=== PATIENT | female | born 1985 | race Caucasian/White ===

== ENCOUNTER 2017-02-28 15:54 | Emergency (ER) | payer OTHER ==
[~2017-02-28] VITALS: Ht 175.3 cm; Wt 66.7 kg
[2017-02-28 15:58] VITALS: BP 123/69
--- NOTE | 2017-02-28 16:20 | NUR ---
Patient ambulated to bed 6. RN evaluating patient at bedside.
--- NOTE | 2017-02-28 16:21 | NUR ---
31 F BIB SELF WITH C/O 02/03 "SHARP" NON RADIATING INTERMITTENT EPIGASTRIC PAIN X 1 WEEK; LMP 01/12/17; PT STATES SHE WAS EATING SUSHI AND MIGHT HAVE FOOD POISONING. PT DENIES ANY RECENT FEVERS, CHILLS, SOB, OR BLOOD IN STOOL; PT REPORTS OF INTERMITTENT N/V X 1 WEEK; PT DENIES ANY VAG BLEEDING; SKIN IS PINK/WARM/DRY; AOX4 WITH EVEN AND STEADY GAIT; RR ARE EVEN AND UNLABORED; VSS; PATIENT POSITIONED FOR COMFORT; HOB ELEVATED; ER MD MADE AWARE OF PT STATUS. NAD. WILL CONTINUE TO MONITOR.
--- NOTE | 2017-02-28 16:49 | NUR ---
Dr. Rodney evaluating patient at bedside.
[2017-02-28] MEDS ORDERED: DEXT 5% / LACT RING 1,000 ML IV ONE (17:00)
--- NOTE | 2017-02-28 17:20 | NUR ---
US tech at bedside for exam.
[2017-02-28 17:29] LABS: BASOPHILS # (AUTO) 0.1 K/uL (0.00-0.22); BASOPHILS % (AUTO) 2.1 % (0.0-2.0); EOSINOPHILS # (AUTO) 0.1 K/uL (0-0.4); EOSINOPHILS % (AUTO) 0.8 % (0.0-4.0); HEMATOCRIT 41.3 % (36-48); HEMOGLOBIN 13.9 g/dL (12.0-16.0); LYMPHOCYTES # (AUTO) 1.5 K/uL (2.5-16.5); LYMPHOCYTES % (AUTO) 23.6 % (20.5-51.1); MEAN CORPUSCULAR HEMOGLOBIN 29 pg (27-31); MEAN CORPUSCULAR HGB CONC 34 g/dL (33-37); MEAN CORPUSCULAR VOLUME 87 fL (80-94); MONOCYTES # (AUTO) 0.5 K/uL (0.8-1.0); MONOCYTES % (AUTO) 8.1 % (1.7-9.3); NEUTROPHILS # (AUTO) 4.1 K/uL (1.8-7.7); NEUTROPHILS % (AUTO) 65.4 % (42.2-75.2); PLATELET COUNT (AUTO) 256 K/uL (140-450); RED BLOOD CELL COUNT(AUTO) 4.77 MIL/uL (4.20-5.40); RED CELL DISTRIBUTION WIDTH 11.9 % (11.6-13.7); WHITE BLOOD COUNT (AUTO) 6.3 K/uL (4.8-10.8)
[2017-02-28 17:38] LABS: ANION GAP 13.6 (8-16); CARBON DIOXIDE 26.2 mmol/L (21-32); CREATININE 0.6 mg/dL (0.6-1.3); POTASSIUM 3.8 mmol/L (3.5-5.1)
--- NOTE | 2017-02-28 17:54 | NUR ---
Dr. Rodney re-evaluating patient at bedside.
[2017-02-28] MEDS ORDERED: ONDANSETRON 4 MG/2 ML VIAL IVP ONE (17:55)
--- NOTE | 2017-02-28 19:15 | NUR ---
IV removed, catheter intact and site benign. Applied folded 4x4 gauze and tape to stop bleeding. Pt tolerated procedure well.
[2017-02-28 19:17] VITALS: BP 103/90
== END 2017-02-28 19:17 | disposition home or self-care (01) ==
LOC: MED 15:54
DX: O26.891 Other specified pregnancy related conditions, first trimester (principal); R10.2 Pelvic and perineal pain
CPT/HCPCS: 36415; 76801; 80048; 81002; 81025; 84702; 85025; 86900; 86901; 96361; 96374; 99285; J2405; Q0092

== ENCOUNTER 2018-07-12 11:35 | Emergency (ER) | payer OTHER ==
[~2018-07-12] VITALS: Ht 175.3 cm; Wt 63.5 kg
[2018-07-12 11:42] VITALS: BP 107/63
--- NOTE | 2018-07-12 11:57 | NUR ---
PT AMBULATED TO ER BED 03
--- NOTE | 2018-07-12 12:00 | NUR ---
PATIENT PRESENTS TO ED WITH C/O ABDOMINAL CRAMPING PAIN RADIATING TO LOWER BACK 10/04, VAGINAL UNCONTROLED BLEEDING FOR 2 WEEKS. PT IS AAOX4 WITH EVEN AND STEADY GAIT; LUNGS CLEAR BL; HR EVEN AND REGULAR; PT DENIES ANY FEVER, CP, SOB, OR COUGH AT THIS TIME; DENIES N/V/D; SKIN IS PINK/WARM/DRY; VSS; PATIENT POSITIONED FOR COMFORT; HOB ELEVATED; BEDRAILS UP X2; BED DOWN. ER MD MADE AWARE OF PT STATUS.
--- NOTE | 2018-07-12 12:19 | NUR ---
Patient being evaluated by physician at bedside.
--- NOTE | 2018-07-12 12:47 | NUR ---
US AT BEDSIDE
[2018-07-12 12:59] LABS: BASOPHILS % (AUTO) 0.7 % (0.0-2.0); EOSINOPHILS # (AUTO) 0.1 K/uL (0-0.4); EOSINOPHILS % (AUTO) 2.3 % (0.0-4.0); HEMATOCRIT 39.8 % (36-48); HEMOGLOBIN 13.2 g/dL (12.0-16.0); LYMPHOCYTES # (AUTO) 1.2 K/uL (2.5-16.5); LYMPHOCYTES % (AUTO) 37.4 % (20.5-51.1); MEAN CORPUSCULAR HEMOGLOBIN 29 pg (27-31); MEAN CORPUSCULAR HGB CONC 33 g/dL (33-37); MEAN CORPUSCULAR VOLUME 87.5 fL (80-94); MONOCYTES # (AUTO) 0.3 K/uL (0.8-1.0); MONOCYTES % (AUTO) 8.2 % (1.7-9.3); NEUTROPHILS # (AUTO) 1.7 K/uL (1.8-7.7); NEUTROPHILS % (AUTO) 51.4 % (42.2-75.2); PLATELET COUNT (AUTO) 248 K/uL (140-450); RED BLOOD CELL COUNT(AUTO) 4.55 MIL/uL (4.20-5.40); RED CELL DISTRIBUTION WIDTH 13.7 % (11.6-13.7); WHITE BLOOD COUNT (AUTO) 3.3 K/uL (4.8-10.8)
[2018-07-12 13:24] LABS: PROTHROMBIN TIME 10.3 secs (10.8-13.4)
[2018-07-12 13:40] LABS: APPEARANCE,URINE CLEAR (CLEAR); BILIRUBIN,URINE NEGATIVE (NEGATIVE); BLOOD, URINE 2+ (NEGATIVE); COLOR,URINE YELLOW (YELLOW); LEUKOCYTE ESTERASE ,URINE NEGATIVE (NEGATIVE); NITRITE, URINE NEGATIVE (NEGATIVE); PH,URINE 5.5 (5.0-9.0); UGLUCOSE NEGATIVE (NEGATIVE)
[2018-07-12 13:44] LABS: WBC,URINE 0-5 /HPF (0-5)
[2018-07-12 14:40] VITALS: BP 101/72
== END 2018-07-12 14:41 | disposition home or self-care (01) ==
LOC: MED 11:35
DX: N93.8 Other specified abnormal uterine and vaginal bleeding (principal)
CPT/HCPCS: 36415; 76830; 81001; 81025; 84702; 85025; 85610; 85730; 99284; Q0092